=== PATIENT | female | born 1985 | race Caucasian/White ===

== ENCOUNTER 2017-10-15 17:43 | Emergency (ER) | payer OTHER ==
[~2017-10-15] VITALS: Ht 180.3 cm; Wt 132.4 kg
[~2017-10-15 17:43] MED LIST: ACYCLOVIR 400400 MG PO; ANUSOL1 EACH RC; COLACE 100 MG100 MG PO; INDOCIN50 MG RC; NORCO 5-325 TA1 EACH PO; ZANTAC; ZOFRAN ODT4 MG SUBLING
[2017-10-15 18:23] LABS: INFLUENZA A ANTIGEN None Detected (None Detect); INFLUENZA B ANTIGEN None Detected (None Detect)
[2017-10-15 19:13] LABS: URINE BILIRUBIN NEGATIVE (Negative); URINE BLOOD 1+ (Negative); URINE CLARITY SL CLOUDY; URINE COLOR YELLOW; URINE GLUCOSE-RANDOM NEGATIVE (Negative); URINE KETONES NEGATIVE (Negative); URINE LEUKOCYTES 1+ (Negative); URINE NITRITE NEGATIVE (Negative); URINE PROTEIN TRACE (Negative)
[2017-10-15 19:31] LABS: BACTERIA >30 Many /HPF (None Seen); CASTS None Seen /LPF (None Seen); CRYSTALS None Seen /LPF (None Seen); SQUAMOUS >10 Many /LPF (0-3); URINE RBC 3-10 Few /HPF (0-2); URINE WBC >25 Many /HPF (0-5)
[2017-10-15] MEDS ORDERED: MACROBID 100 M100 M2 PO (20:09)
[2017-10-15] MEDS ORDERED: PYRIDIUM100 M1 PO (20:09)
[2017-10-15 20:22] VITALS: BP 139/69
== END 2017-10-15 20:24 | disposition home or self-care (01) ==
LOC: M.ERS 17:43
PROVIDERS: Nurse Practitioner Family
DX: N30.01 Acute cystitis with hematuria (principal); R51 Headache; Z90.49 Acquired absence of other specified parts of digestive tract

== ENCOUNTER 2019-01-05 14:27 | Emergency (ER) | payer OTHER ==
[~2019-01-05] VITALS: Ht 175.3 cm; Wt 124.3 kg
[~2019-01-05 14:27] MED LIST changes: +MACROBID 100 M100 M2 PO; +PYRIDIUM100 M1 PO
[2019-01-05] MEDS ORDERED: BIRTH CONTROL (14:40)
[2019-01-05] MEDS ORDERED: IBUPROFEN 800800 M1 PO (15:26)
[2019-01-05] MEDS ORDERED: PERCOCET PO (15:26)
[2019-01-05 15:44] VITALS: BP 111/67
== END 2019-01-05 15:45 | disposition home or self-care (01) ==
LOC: M.ERS 14:27
DX: S86.012A Strain of left Achilles tendon, initial encounter (principal); Z90.49 Acquired absence of other specified parts of digestive tract; F17.200 Nicotine dependence, unspecified, uncomplicated; X50.3XXA Overexertion from repetitive movements, initial encounter; Y93.89 Activity, other specified; Y92.89 Other specified places as the place of occurrence of the external cause; Y99.8 Other external cause status